=== PATIENT | female | born 1965 | race Hispanic/Latino ===

== ENCOUNTER 2018-06-26 05:36 | Outpatient (CLI) | payer BC ==
[2018-06-26 07:55] LABS: Basophils # (Auto) 0.1 K/mm3 (0.0-0.1); Basophils % (Auto) 0.9 % (0.0-1.8); Eosinophils # (Auto) 0.2 K/mm3 (0.0-0.4); Eosinophils % (Auto) 2.8 % (0.0-4.3); Hematocrit 37.6 % (30.3-42.9); Hemoglobin 12.9 gm/dl (10.1-14.3); Lymphocytes # (Auto) 2.7 K/mm3 (1.2-5.4); Lymphocytes % (Auto) 45.5 % (13.4-35.0); Mean Corpuscular HGB Conc 34 % (30-34); Mean Corpuscular Hemoglobin 31 pg (28-32); Mean Corpuscular Volume 91 fl (79-97); Monocytes # (Auto) 0.4 K/mm3 (0.0-0.8); Monocytes % (Auto) 6.8 % (0.0-7.3); Platelet Count 244 K/mm3 (140-440); Red Blood Count 4.16 M/mm3 (3.65-5.03)
[2018-06-26 08:21] LABS: Alanine Aminotransferase 10 units/L (7-56); Albumin 4.3 g/dL (3.9-5); BUN/Creatinine Ratio 22; Blood Urea Nitrogen 11 mg/dL (7-17); Calcium 9.3 mg/dL (8.4-10.2); Chol/HDL Ratio 2.69 %; HDL Cholesterol 79 mg/dL (40-59); Hemolysis Index 30; LDL Cholesterol,Direct 143 mg/dL (50-130)
== END 2018-06-26 05:37 | disposition home or self-care (01) ==
LOC: LAB 05:36
DX: E78.2 Mixed hyperlipidemia (principal); R53.82 Chronic fatigue, unspecified; E03.9 Hypothyroidism, unspecified; E11.9 Type 2 diabetes mellitus without complications; E66.01 Morbid (severe) obesity due to excess calories
CPT/HCPCS: 36415; 80053; 80061; 82306; 82607; 82747; 84443; 85025

== ENCOUNTER 2019-07-09 05:41 | Outpatient (CLI) | payer BC ==
[2019-07-09 06:34] LABS: Chol/HDL Ratio 2.73 %
[2019-07-09 06:58] LABS: Free T4 (Free Thyroxine) 1.3 ng/dL (0.76-1.46)
== END 2019-07-09 05:42 | disposition home or self-care (01) ==
LOC: LAB 05:41
PROVIDERS: ATTEND Nurse Practitioner Women's Health
DX: E56.8 Deficiency of other vitamins (principal); E11.9 Type 2 diabetes mellitus without complications; K21.9 Gastro-esophageal reflux disease without esophagitis; Z90.89 Acquired absence of other organs; E66.01 Morbid (severe) obesity due to excess calories
CPT/HCPCS: 36415; 80061; 82607; 82652; 82747; 83001; 84439; 84443

== ENCOUNTER 2019-07-16 06:05 | Outpatient (CLI) | payer BC ==
--- NOTE | 2019-07-16 10:58 | Mammography Report ---
BILATERAL DIGITAL SCREENING MAMMOGRAMS WITH CAD INDICATION: Screening. COMPARISONS: None available. However, she indicated that she had a prior mammogram at either [facility] FINDINGS: Craniocaudal and mediolateral oblique views of both breasts were obtained using 2-D digital acquisition. In addition to standard review, the examination was analyzed for possible abnormalities using a computer-assisted detection device (iCAD). The breast tissue is heterogeneously dense, which may obscure small masses. Bilateral parenchymal asymmetries require comparison with the prior mammogram or additional imaging. IMPRESSION: Comparison with the previous mammogram is required. We will attempt to obtain a prior mammogram for c omparison. If we do not obtain a prior mammogram within 30 days, a revised report will be issued damien mmending a recall for additional imaging. Please be advised that the patient should not schedule an a ppointment for return until adequate time (at least 2 weeks) has passed breast to obtain the prior ma mmogram. BI-RADS CATEGORY 0: INCOMPLETE - NEED ADDITIONAL IMAGING EVALUATION AND/OR PRIOR MAMMOGRAMS FOR COMP ARISON Information is entered into a reminder system for a target due date for the next mammogram. The resul ts and recommendations were sent to the patient by mail. Signer Name: Fabián Ramirez MD Signed: 07/16/2019 10:51 AM Workstation Name: [id number]
== END 2019-07-16 06:06 | disposition home or self-care (01) ==
LOC: SPVWC 06:05 → MAMMO 06:05 → SPVWC 06:06
PROVIDERS: ATTEND Nurse Practitioner Women's Health
DX: Z12.31 Encounter for screening mammogram for malignant neoplasm of breast (principal); K21.9 Gastro-esophageal reflux disease without esophagitis; E03.9 Hypothyroidism, unspecified
CPT/HCPCS: 77067

== ENCOUNTER 2019-10-08 07:53 | Outpatient (CLI) | payer BC ==
--- NOTE | 2019-10-08 08:40 | Mammography Report ---
DIGITAL RIGHT DIAGNOSTIC MAMMOGRAM WITH CAD, WITHOUT TOMOSYNTHESIS 10/08/2019 INDICATION: ABNORMAL MAMMOGRAM. Recall for asymmetries. TECHNIQUE: Digital right mammographic imaging was performed. Magnification views were obtained. This examination was interpreted with the benefit of Computer-aided Detection analysis. COMPARISON: 07/16/2019 screening mammogram. Earlier mammograms have not been obtained. Breast Density: The breast is heterogeneously dense, which may obscure small masses. FINDINGS: Lateral and spot magnification MLO and CC views were performed and are negative. Satisfacto ry effacement of asymmetries. IMPRESSION: No mammographic evidence of malignancy. Follow up recommendation: Routine BI-RADS Category 1: Negative. A "normal" or negative report should not discourage follow up or biopsy of a clinically significant f inding. A written summary of these findings will be mailed to the patient. The patient will be entered into a mammography reporting system which will generate a reminder letter for the patient's next appointmen t at the appropriate interval. According to the [employer], yearly mammograms are recommended starting at age 40 and continuing as long as a woman is in good health. Breast MRI is recommended for women with an sunil roximately 20-25% or greater lifetime risk of breast cancer, including women with a strong family his tory of breast or ovarian cancer and women who have been treated for Hodgkin's disease. Signer Name: Fabián Ramirez MD Signed: 10/08/2019 8:35 AM Workstation Name: [id number]
== END 2019-10-08 07:54 | disposition home or self-care (01) ==
LOC: SPVWC 07:53
PROVIDERS: ATTEND Obstetrics & Gynecology
DX: R92.8 Other abnormal and inconclusive findings on diagnostic imaging of breast (principal); E11.9 Type 2 diabetes mellitus without complications
CPT/HCPCS: 77066

== ENCOUNTER 2020-01-07 10:53 | Day surgery (SDC) | payer BC ==
[2020-01-07] MEDS ORDERED: SODIUM CHLORIDE 0.9% 1000 ML 1,000 ML IV SCH (11:15)
--- NOTE | 2020-01-07 11:41 | Anesthesia Day of Surgery ---
Anesthesia Day of Surgery - Day of Surgery Patient Examined: Yes Patient H&P Reviewed: Yes Patient is NPO: Yes
--- NOTE | 2020-01-07 11:41 | Anesthesia Consultation ---
Anesthesia Consult and Med Hx Date of service: 01/07/20 - Airway Anesthetic Teeth Evaluation: Good ROM Head & Neck: Adequate Mental/Hyoid Distance: Adequate Mallampati Class: Class III Intubation Access Assessment: Possibly Difficult - Pulmonary Exam CTA: Yes - Cardiac Exam Cardiac Exam: RRR - Pre-Operative Health Status ASA Pre-Surgery Classification: ASA2 Proposed Anesthetic Plan: MAC - Pulmonary Hx Respiratory Symptoms: Yes (bronchitit in 11/2019 s/p Abx/steroids; resolved) SOB: No - Cardiovascular System Hx Hypertension: No Hx Heart Attack/AMI: No Hx Percutaneous Transluminal Coronary Angioplasty (PTCA): No - Central Nervous System CVA: No - Gastrointestinal Hx Gastroesophageal Reflux Disease: Yes (well controlled; OTC antacids) - Endocrine Hx Renal Disease: No Hx Liver Disease: No Hx Insulin Dependent Diabetes: No Hx Non-Insulin Dependent Diabetes: No Hx Hypothyroidism: Yes - Other Systems Hx Obesity: Yes (BMI 32) - Additional Comments Anesthesia Medical History Comments: Hx severe PONV/PDNV requiring scop patch for up to 1 wk after GA.
[2020-01-07] MEDS ORDERED: propofoL 200 MG/20 ML VIAL IV ONE ×2 (13:04)
[2020-01-07] MEDS ORDERED: LIDOCAINE (2%) 20 MG/1 ML VIAL 20 ML MDV INFILTRATI ONE (13:04)
[2020-01-07 13:57] VITALS: BP 138/85
--- NOTE | 2020-01-07 15:37 | Operative Report ---
PROCEDURE: Colonoscopy. INDICATIONS: Colon cancer screening. MEDICATIONS: Propofol per [employer]. COMPLICATIONS: None. DESCRIPTION OF PROCEDURE: The patient brought to the procedure suite. The patient had the procedure discussed with her at length. All risks, complications, and benefits discussed after which the patient signed for the procedure performed. The patient was placed in left lateral decubitus position. Rectal exam performed prior to insertion of the scope. After adequate sedation medication as above, scope was introduced into the rectum and brought to level of cecum. Ileocecal valve, appendiceal orifice, cecal strap were adequately visualized. Colonoscope was then removed and mucosa of colon visualized. Prep quality of the procedure was fair. The patient's vital signs remained stable throughout the procedure. FINDINGS: There is noted to be approximately 90 cm remaining colon noted. There was ileocolonic end-to-side anastomosis noted at 90 cm from the anal verge. This appeared intact. There were few small sigmoid diverticula noted during this procedure. There were no mass lesions or polyps noted during this procedure. Retroflexion view performed in the rectum showed small to medium internal hemorrhoids. The patient tolerated the procedure well. No complications during the procedure. IMPRESSION: 1. A 90 cm remaining colon with ileocolonic anastomosis, which appeared intact. 2. Diverticulosis. 3. Internal hemorrhoids. RECOMMENDATIONS: 1. High-fiber diet. 2. Continue current medication. 3. Given family history of father with colon cancer, I would recommend repeat colonoscopy in 5 years. JOB# [id number] [facility]
== END 2020-01-07 10:54 | disposition home or self-care (01) ==
LOC: GIO 10:53
PROVIDERS: ATTEND Internal Medicine Gastroenterology
DX: Z12.11 Encounter for screening for malignant neoplasm of colon (principal); K57.30 Diverticulosis of large intestine without perforation or abscess without bleeding; K64.8 Other hemorrhoids; E11.9 Type 2 diabetes mellitus without complications; E66.01 Morbid (severe) obesity due to excess calories; K21.9 Gastro-esophageal reflux disease without esophagitis; E03.9 Hypothyroidism, unspecified; F32.9 Major depressive disorder, single episode, unspecified; F41.9 Anxiety disorder, unspecified; Z79.899 Other long term (current) drug therapy; Z68.32 Body mass index [BMI] 32.0-32.9, adult; Z98.890 Other specified postprocedural states; Z90.49 Acquired absence of other specified parts of digestive tract
CPT/HCPCS: 45378; 81025; J2704; J7030

== ENCOUNTER 2021-02-09 14:18 | Outpatient (CLI) | payer BC ==
--- NOTE | 2021-02-09 16:40 | Mammography Report ---
DIGITAL SCREENING MAMMOGRAM WITH CAD, 02/09/2021 CLINICAL INFORMATION / INDICATION: Routine screening mammography. TECHNIQUE: Digital bilateral 2D mammography was obtained in the craniocaudal and mediolateral obliqu e projections. This examination was interpreted with the benefit of Computer-Aided Detection analysis . COMPARISON: 07/16/2019 FINDINGS: Breast Density: There are scattered areas of fibroglandular density. No dominant mass, suspicious calcifications, or architectural distortion in either breast. No interval change. IMPRESSION: No mammographic evidence of malignancy. Follow up recommendation: Routine yearly BI-RADS Category 1: Negative. A "normal" or negative report should not discourage follow up or biopsy of a clinically significant f inding. A written summary of these findings will be mailed to the patient. The patient will be entered into a mammography reporting system which will generate a reminder letter for the patient's next appointmen t at the appropriate interval. The [employer] recommends yearly mammograms starting at age 40 and continuing as l mary ann as a woman is in good health. Breast MRI is recommended for women with an approximate 20-25% or greater lifetime risk of breast cancer, including women with a strong family history of breast or ova [place]anna cancer or who have been treated for Hodgkin's disease. Signer Name: Karyna Cornelius MD Signed: 02/09/2021 4:35 PM Workstation Name: [id number]
[2021-02-09 17:11] LABS: Alanine Aminotransferase 18 units/L (7-56); Albumin 4.1 g/dL (3.9-5); Blood Urea Nitrogen 14 mg/dL (7-17); Calcium 9.4 mg/dL (8.4-10.2); HDL Cholesterol 81 mg/dL (40-59); Hemolysis Index 8; LDL Cholesterol,Direct 152 mg/dL (50-130)
[2021-02-09 17:14] LABS: BUN/Creatinine Ratio 28
[2021-02-09 17:44] LABS: Hematocrit 38.9 % (30.3-42.9); Hemoglobin 13.1 gm/dl (10.1-14.3); Lymphocytes % (Auto) 34.6 % (13.4-35.0); Mean Corpuscular HGB Conc 34 % (30-34); Mean Corpuscular Volume 89 fl (79-97); Platelet Count 248 K/mm3 (140-440); Red Cell Distribution Width 14.2 % (13.2-15.2)
[2021-02-09 17:45] LABS: Basophils % (Auto) 0.5 % (0.0-1.8); Eosinophils # (Auto) 0.1 K/mm3 (0.0-0.4); Eosinophils % (Auto) 1.8 % (0.0-4.3); Lymphocytes # (Auto) 2.1 K/mm3 (1.2-5.4); Monocytes # (Auto) 0.4 K/mm3 (0.0-0.8); Monocytes % (Auto) 6.9 % (0.0-7.3)
== END 2021-02-09 14:19 | disposition home or self-care (01) ==
LOC: MAMMO 14:18
PROVIDERS: ATTEND Nurse Practitioner Women's Health
DX: Z12.31 Encounter for screening mammogram for malignant neoplasm of breast (principal)
CPT/HCPCS: 36415; 77067; 80053; 80061; 82670; 83001; 85025